=== PATIENT | female | born 1995 | race Caucasian/White ===

== ENCOUNTER 2017-09-15 12:39 | Emergency (ER) | payer OTHER ==
--- NOTE | 2017-09-15 12:42 | EDM.PDOC ---
ED HPI GENERAL MEDICAL PROBLEM - General Chief Complaint: Allergic Reaction Stated Complaint: ALLERGIC REACTION Time Seen by Provider: 09/15/17 12:42 Source of Information: Reports: Patient - History of Present Illness INITIAL COMMENTS - FREE TEXT/NARRATIVE: HISTORY AND PHYSICAL: History of present illness: [ Patient took a first dosing of niacin today and felt hot and red flushed skin similar to common niacin reaction, symptoms have alleviated she states she felt as if her throat and swollen although she speaks clearly. Sentences no distress breathing nonlabored No fever nausea vomiting chills sweats no chest pain shortness breath headache dizziness or palpitation no bowel or urine symptoms] Review of systems: As per history of present illness and below otherwise all systems reviewed and negative. Past medical history: As per history of present illness and as reviewed below otherwise noncontributory. Surgical history: As per history of present illness and as reviewed below otherwise noncontributory. Social history: No reported history of drug or alcohol abuse. Family history: As per history of present illness and as reviewed below otherwise noncontributory. Physical exam: HEENT: Atraumatic, normocephalic, pupils reactive, negative for conjunctival pallor or scleral icterus, mucous membranes moist, throat clear, neck supple, nontender, trachea midline. No lip swelling tongue swelling or oral pharyngeal edema Lungs: Clear to auscultation, breath sounds equal bilaterally, chest nontender. Heart: S1S2, regular, negative for clicks, rubs, or JVD. Abdomen: Soft, nondistended, nontender. Negative for masses or hepatosplenomegaly. Negative for costovertebral tenderness. Pelvis: Stable nontender. Genitourinary: Deferred. Rectal: Deferred. Extremities: Atraumatic, negative for cords or calf pain. Neurovascular unremarkable. Neuro: Awake, alert, oriented. Cranial nerves II through XII unremarkable. Cerebellum unremarkable. Motor and sensory unremarkable throughout. Exam nonfocal. Skin unremarkable Diagnostics: [] Therapeutics: [Benadryl 50 mg by mouth now may use as needed every 4-6 hours Consider alternative medications with primary care Stop niacin for now ] Impression: [Reaction to medication] Definitive disposition and diagnosis as appropriate pending reevaluation and review of above. face/arms Pain Score (Numeric/FACES): 4 - Related Data Allergies Allergy/AdvReac Type Severity Reaction Status Date / Time lobster Allergy Anaphylactic Uncoded 09/15/17 12:43 Shock Home Meds: Home Meds Levothyroxine [Synthroid] 100 mcg PO DAILY 09/15/17 [History] Past Medical History - Past Health History Medical/Surgical History: Denies Medical/Surgical History Social & Family History - Family History Family Medical History: Noncontributory - Tobacco Use Smoking Status *Q: Never Smoker Years of Tobacco use: 4 Second Hand Smoke Exposure: No - Alcohol Use Days Per Week of Alcohol Use: 4 Number of Drinks Per Day: 2 Total Drinks Per Week: 8 - Recreational Drug Use Recreational Drug Use: No ED ROS ALLERGIC REACTION - Review of Systems Review Of Systems: ROS reveals no pertinent complaints other than HPI. ED EXAM GENERAL NO PERIP PULSE - Physical Exam Exam: See Below Course - Vital Signs Last Recorded V/S: Last Vital Signs Temp 97.5 F 09/15/17 12:40 Pulse 73 09/15/17 12:40 Resp 20 09/15/17 12:40 BP 106/62 09/15/17 12:40 Pulse Ox 98 09/15/17 12:40 - Orders/Labs/Meds Meds: Medications Discontinued Medications Generic Name Dose Route Start Last Admin Trade Name Freq PRN Reason Stop Dose Admin Diphenhydramine HCl 50 mg 09/15/17 12:46 Benadryl PO 09/15/17 12:47 ONETIME ONE Departure - Departure Time of Disposition: 12:49 Disposition: Home, Self-Care 01 Condition: Good Clinical Impression: Medication reaction - Discharge Information Additional Instructions: Stop niacin for now Follow-up with your primary care and consider alternative medications Renagel 50 mg every 4-6 hours as needed may be used As discussed this is a likely a well-known side effect of the medication and does not necessarily represent allergic reaction The following information is given to patients seen in the emergency department who are being discharged to home. This information is to outline your options for follow-up care. We provide all patients seen in our emergency department with a follow-up referral. The need for follow-up, as well as the timing and circumstances, are variable depending upon the specifics of your emergency department visit. If you don't have a primary care physician on staff, we will provide you with a referral. We always advise you to contact your personal physician following an emergency department visit to inform them of the circumstance of the visit and for follow-up with them and/or the need for any referrals to a consulting specialist. The emergency department will also refer you to a specialist when appropriate. This referral assures that you have the opportunity for follow-up care with a specialist. All of these measure are taken in an effort to provide you with optimal care, which includes your follow-up. Under all circumstances we always encourage you to contact your private physician who remains a resource for coordinating your care. When calling for follow-up care, please make the office aware that this follow-up is from your recent emergency room visit. If for any reason you are refused follow-up, please contact the [facility] emergency department at and asked to speak to the emergency department charge nurse.
[2017-09-15] MEDS ORDERED: diphenhydrAMINE 50 MG Cap PO ONE (12:46)
[2017-09-15 13:29] VITALS: BP 121/68
== END 2017-09-15 13:26 | disposition home or self-care (01) ==
LOC: MW.ED 12:39
DX: R22.1 Localized swelling, mass and lump, neck (principal); T46.7X5A Adverse effect of peripheral vasodilators, initial encounter; Z91.013 Allergy to seafood; Z79.899 Other long term (current) drug therapy
CPT/HCPCS: 99283; A9270

== ENCOUNTER 2018-12-24 21:36 | Emergency (ER) | payer BC ==
[2018-12-24] MEDS ORDERED: Sodium Chloride 0.9% 1,000 ML IV ONE (21:40)
[2018-12-24] MEDS ORDERED: methylPREDNISolone Sodium Succinate 125 MG/2 ML SDV IVPUSH ONE (21:40)
[2018-12-24] MEDS ORDERED: Ketorolac 30 MG/ML SDV IVPUSH ONE (21:40)
--- NOTE | 2018-12-24 21:45 | EDM.PDOC ---
<Marielle Baltazar - Last Filed: 12/24/18 23:38> ED HPI GENERAL MEDICAL PROBLEM - General Stated Complaint: CHEST PAIN Time Seen by Provider: 12/24/18 21:41 - History of Present Illness INITIAL COMMENTS - FREE TEXT/NARRATIVE: This is Dr. Baltazar dictating an addendum note as I assumed care of this case at 10 PM. After IV fluids the patient's vital signs have normalized. She is still totally nursing that she has diffuse chest pain and a headache as well as a sore throat. She has been given Toradol or ready and I will discuss with her further pain management here. Currently awaiting her chest x-ray results but the remainder of her labs are all within normal limits. My personal interview of the patient she does have a history of asthma which is usually just induced with exercise and she uses a preventative but she cannot recall the name. On my physical exam the patient does have some posterior oropharyngeal erythema but there is no gross swelling or cervical adenopathy. The patient has diminished breath sounds on exam but no wheezing or stridor and in my interview of her the patient started having a rhonchitic harsh cough. I discussed with her asthma and that this may be an asthma: With a bronchitic component. Once I obtain her chest x-ray results we will discuss care plan for home but in the interim I will give her a DuoNeb. I've also given her spacer and spacer teaching for her inhaler at home. I have discussed with her that the chest pain that she is experiencing is likely due to the tightness of her airways and that once the steroids kick in and with regular inhaler use the discomfort will dissipate. Chest x-ray was being read as interstitial prominence consistent with reactive airway disease or bronchiolitis is consistent with the patient's presenting symptoms but there is also some haziness in the left base that may be the start of an early pneumonia. I will give her a dose of Rocephin here and Cefdnir for home along with some cough medicine and the prednisone. Please add to impression above: Asthmatic bronchitis with exacerbation, early left lower lobe pneumonia,pharyngitis - Related Data Allergies Allergy/AdvReac Type Severity Reaction Status Date / Time lobster Allergy Anaphylactic Uncoded 12/24/18 21:57 Shock Home Meds: Home Meds Levothyroxine [Synthroid] 100 mcg PO DAILY 09/15/17 [History] FLUoxetine [PROzac] 0 mg PO DAILY 12/24/18 [History] buPROPion [Wellbutrin] 0 mg PO DAILY 12/24/18 [History] ED ROS GENERAL - Review of Systems Review Of Systems: ROS reveals no pertinent complaints other than HPI. Course - Vital Signs Last Recorded V/S: Last Vital Signs Temp 97.9 F 12/24/18 23:11 Pulse 87 12/25/18 00:33 Resp 16 12/25/18 00:33 BP 124/76 12/25/18 00:33 Pulse Ox 96 12/25/18 00:33 - Orders/Labs/Meds Labs: Laboratory Tests 12/24/18 12/24/18 12/24/18 Range/Units 21:53 21:53 22:05 WBC 9.93 (4.0-11.0) K/uL RBC 4.53 (4.30-5.90) M/uL Hgb 13.4 (12.0-16.0) g/dL Hct 40.6 (36.0-46.0) % MCV 89.6 (80.0-98.0) fL MCH 29.6 (27.0-32.0) pg MCHC 33.0 (31.0-37.0) g/dL RDW Std Deviation 42.2 (28.0-62.0) fl RDW Coeff of Nicole 13 (11.0-15.0) % Plt Count 301 (150-400) K/uL MPV 9.80 (7.40-12.00) fL Neut % (Auto) 56.8 (48.0-80.0) % Lymph % (Auto) 33.2 (16.0-40.0) % [place] % (Auto) 8.8 (0.0-15.0) % Eos % (Auto) 1.0 (0.0-7.0) % Baso % (Auto) 0.2 (0.0-1.5) % Neut # (Auto) 5.6 (1.4-5.7) K/uL Lymph # (Auto) 3.3 H (0.6-2.4) K/uL [place] # (Auto) 0.9 H (0.0-0.8) K/uL Eos # (Auto) 0.1 (0.0-0.7) K/uL Baso # (Auto) 0.0 (0.0-0.1) K/uL Nucleated RBC % 0.0 /100WBC Nucleated RBCs # 0 K/uL Sodium (136-145) mmol/L Potassium (3.5-5.1) mmol/L Chloride (98-107) mmol/L Carbon Dioxide (21.0-32.0) mmol/L BUN (7.0-18.0) mg/dL Creatinine (0.6-1.0) mg/dL Est Cr Clr Drug Dosing mL/min Estimated GFR (MDRD) ml/min Glucose (74-106) mg/dL Calcium (8.5-10.1) mg/dL Total Bilirubin (0.2-1.0) mg/dL AST (15-37) IU/L ALT (14-63) IU/L Alkaline Phosphatase (46-116) U/L Total Protein (6.4-8.2) g/dL Albumin (3.4-5.0) g/dL Globulin (2.6-4.0) g/dL Albumin/Globulin Ratio (0.9-1.6) Urine Color YELLOW Urine Appearance SLT CLOUDY Urine pH 5.5 (5.0-8.0) Ur Specific [place] >= 1.030 (1.001-1.035) Urine Protein NEGATIVE (NEGATIVE) mg/dL Urine Glucose (UA) NEGATIVE (NEGATIVE) mg/dL Urine Ketones TRACE H (NEGATIVE) mg/dL Urine Occult Blood NEGATIVE (NEGATIVE) Urine Nitrite NEGATIVE (NEGATIVE) Urine Bilirubin NEGATIVE (NEGATIVE) Urine Urobilinogen 0.2 (<2.0) EU/dL Ur Leukocyte Esterase NEGATIVE (NEGATIVE) Urine HCG, Qual NEGATIVE (NEGATIVE) 12/24/18 Range/Units 22:05 WBC (4.0-11.0) K/uL RBC (4.30-5.90) M/uL Hgb (12.0-16.0) g/dL Hct (36.0-46.0) % MCV (80.0-98.0) fL MCH (27.0-32.0) pg MCHC (31.0-37.0) g/dL RDW Std Deviation (28.0-62.0) fl RDW Coeff of Nicole (11.0-15.0) % Plt Count (150-400) K/uL MPV (7.40-12.00) fL Neut % (Auto) (48.0-80.0) % Lymph % (Auto) (16.0-40.0) % [place] % (Auto) (0.0-15.0) % Eos % (Auto) (0.0-7.0) % Baso % (Auto) (0.0-1.5) % Neut # (Auto) (1.4-5.7) K/uL Lymph # (Auto) (0.6-2.4) K/uL [place] # (Auto) (0.0-0.8) K/uL Eos # (Auto) (0.0-0.7) K/uL Baso # (Auto) (0.0-0.1) K/uL Nucleated RBC % /100WBC Nucleated RBCs # K/uL Sodium 141 (136-145) mmol/L Potassium 3.5 (3.5-5.1) mmol/L Chloride 106 (98-107) mmol/L Carbon Dioxide 24.4 (21.0-32.0) mmol/L BUN 18 (7.0-18.0) mg/dL Creatinine 0.9 (0.6-1.0) mg/dL Est Cr Clr Drug Dosing 68.64 mL/min Estimated GFR (MDRD) > 60.0 ml/min Glucose 117 H (74-106) mg/dL Calcium 8.8 (8.5-10.1) mg/dL Total Bilirubin 0.2 (0.2-1.0) mg/dL AST 13 L (15-37) IU/L ALT 20 (14-63) IU/L Alkaline Phosphatase 56 (46-116) U/L Total Protein 7.2 (6.4-8.2) g/dL Albumin 3.5 (3.4-5.0) g/dL Globulin 3.7 (2.6-4.0) g/dL Albumin/Globulin Ratio 0.9 (0.9-1.6) Urine Color Urine Appearance Urine pH (5.0-8.0) Ur Specific [place] (1.001-1.035) Urine Protein (NEGATIVE) mg/dL Urine Glucose (UA) (NEGATIVE) mg/dL Urine Ketones (NEGATIVE) mg/dL Urine Occult Blood (NEGATIVE) Urine Nitrite (NEGATIVE) Urine Bilirubin (NEGATIVE) Urine Urobilinogen (<2.0) EU/dL Ur Leukocyte Esterase (NEGATIVE) Urine HCG, Qual (NEGATIVE) Meds: Medications Discontinued Medications Generic Name Dose Route Start Last Admin Trade Name Freq PRN Reason Stop Dose Admin Albuterol/Ipratropium 3 ml 12/24/18 23:27 12/24/18 23:34 Duoneb 3.0-0.5 Mg/3 Ml NEB 12/24/18 23:28 3 ml ONETIME ONE Administration Sodium Chloride 1,000 mls @ 999 mls/hr 12/24/18 21:40 12/24/18 22:06 Normal Saline IV 12/24/18 22:40 999 mls/hr STAT ONE Administration Ceftriaxone Sodium/Dextrose 1 50 mls @ 100 mls/hr 12/24/18 23:42 12/24/18 23: 47 gm/ Premix IV 12/25/18 00:11 100 mls/hr ONETIME ONE Administration Ketorolac Tromethamine 30 mg 12/24/18 21:40 12/24/18 22:08 Toradol IVPUSH 12/24/18 21:41 30 mg ONETIME ONE Administration Methylprednisolone Sodium Succinate 125 mg 12/24/18 21:40 12/24/18 22:10 Solu-Medrol IVPUSH 12/24/18 21:41 125 mg ONETIME ONE Administration Promethazine HCl/Codeine 15 ml 12/25/18 23:45 Phenergan With Codeine PO 12/25/18 23:46 ONETIME ONE Promethazine HCl/Codeine Confirm 12/24/18 23:59 12/25/18 00:08 Phenergan With Codeine Administered 12/25/18 00:00 Not Given Dose 15 ml .ROUTE .STK-MED ONE Promethazine HCl/Codeine 15 ml 12/25/18 00:04 12/25/18 00:07 Phenergan With Codeine PO 12/25/18 00:05 15 ml ONETIME ONE Administration Departure - Departure Time of Disposition: 23:39 Disposition: Home, Self-Care 01 Condition: Good Clinical Impression: Asthmatic bronchitis Qualifiers: Asthma severity: unspecified severity Asthma persistence: unspecified Asthma complication type: with acute exacerbation Qualified Code(s): J45.901 - Unspecified asthma with (acute) exacerbation Pneumonia Qualifiers: Pneumonia type: due to unspecified organism Laterality: left Lung location: lower lobe of lung Qualified Code(s): J18.1 - Lobar pneumonia, unspecified organism Instructions: Asthma, Adult, [id number], Community-Acquired Pneumonia, Adult , [id number] Referrals: PCP,None [Primary Care Provider] - Forms: ED Department Discharge Additional Instructions: The following information is given to patients seen in the emergency department who are being discharged to home. This information is to outline your options for follow-up care. We provide all patients seen in our emergency department with a follow-up referral. The need for follow-up, as well as the timing and circumstances, are variable depending upon the specifics of your emergency department visit. If you don't have a primary care physician on staff, we will provide you with a referral. We always advise you to contact your personal physician following an emergency department visit to inform them of the circumstance of the visit and for follow-up with them and/or the need for any referrals to a consulting specialist. The emergency department will also refer you to a specialist when appropriate. This referral assures that you have the opportunity for followup care with a specialist. All of these measure are taken in an effort to provide you with optimal care, which includes your followup. Under all circumstances we always encourage you to contact your private physician who remains a resource for coordinating your care. When calling for followup care, please make the office aware that this follow-up is from your recent emergency room visit. If for any reason you are refused follow-up, please contact the [facility] emergency department at and ask to speak to the emergency department charge nurse. [facility] Primary care- [place] [address] I've advised to push hydration and to use her pro-air/albuterol inhaler with spacer she was given 1-2 puffs every 6 hours [id number] for the next 2 days and then every 6 hours as needed. You have been given a dose of steroids here that will last until tomorrow but you need to fill the prescription as you' re given for the prednisone and started tomorrow midday. You have also been given a prescription for Cefdnir that you can also start tomorrow. Please call and schedule a follow-up appointment in the clinic with your provider or one of hours and return to ER as needed and as discussed <Abby Gray E - Last Filed: 12/28/18 10:32> ED HPI GENERAL MEDICAL PROBLEM - General Source of Information: Reports: Patient History Limitations: Reports: No Limitations - History of Present Illness INITIAL COMMENTS - FREE TEXT/NARRATIVE: HISTORY AND PHYSICAL: History of present illness: Patient is a 23-year-old female who presents to the emergency room with complaints of sore throat, chest pain, cough and mid back pain. She states for approximately one week she has had a sore throat and cough and generally felt fatigued. Today she states her symptoms were worsened and she developed some mid back pain and chest pain associated with her cough. States she does have a frontal headache with some noise sensitivity. Denies any head injury, trauma or falls. Patient denies any fever, chills, change in vision, syncope or near syncope. Denies any shortness of breath. Denies any abdominal pain, nausea, vomiting, diarrhea, constipation or dysuria. Denies any chance of . Has not noted any blood in urine or stool. Patient has been eating and drinking appropriately. Review of systems: As per history of present illness and below otherwise all systems reviewed and negative. Past medical history: As per history of present illness and as reviewed below otherwise noncontributory. Surgical history: As per history of present illness and as reviewed below otherwise noncontributory. Social history: See social history for further information Family history: As per history of present illness and as reviewed below otherwise noncontributory. Physical exam: General: Well-developed and well-nourished 23-year-old female. Alert and oriented. Nontoxic appearing and in no acute distress. HEENT: Atraumatic, normocephalic, pupils equal and reactive bilaterally, negative for conjunctival pallor or scleral icterus, mucous membranes moist, PE tubes bilaterally (placed Sep 2018), throat clear, neck supple, nontender, trachea midline. No drooling or trismus noted. No meningeal signs. No hot potato voice noted. Lungs: Clear but slightly diminished to auscultation, breath sounds equal bilaterally, chest nontender. Heart: S1S2, regular rate and rhythm without overt murmur Abdomen: Soft, nondistended, nontender. Negative for masses or hepatosplenomegaly. Negative for costovertebral tenderness. Pelvis: Stable nontender. Genitourinary: Deferred. Rectal: Deferred. Skin: Intact, warm, dry. No lesions or rashes noted. Extremities: Atraumatic, moves all extremities per self without difficulty or deficits, negative for cords or calf pain. Neurovascular unremarkable. Neuro: Awake, alert, oriented. Cranial nerves II through XII unremarkable. Cerebellum unremarkable. Motor and sensory unremarkable throughout. Exam nonfocal. Notes: Labs and imagining results are pending. Dr Baltazar was informed of this patient and will follow up on these and disposition patient appropriately. Diagnostics: CBC, CMP, UA, urine , strep screening, chest x-ray, EKG Therapeutics: IV fluid, Toradol, Solu-Medrol Impression: Upper Respiratory Illness Definitive disposition and diagnosis as appropriate pending reevaluation and review of above. chest Pain Score (Numeric/FACES): 8 Past Medical History - Past Health History Medical/Surgical History: Denies Medical/Surgical History - Past Surgical History HEENT Surgical History: Reports: Naso-Sinus Surgery GI Surgical History: Reports: Appendectomy Social & Family History - Family History Family Medical History: Noncontributory - Caffeine Use Caffeine Use: Reports: Coffee, Tea ED ROS GENERAL - Review of Systems Review Of Systems: ROS reveals no pertinent complaints other than HPI. ED EXAM, GENERAL - Physical Exam Exam: See Below (See dictation) Course - Vital Signs Last Recorded V/S: Last Vital Signs Temp 97.9 F 12/24/18 23:11 Pulse 87 12/25/18 00:33 Resp 16 12/25/18 00:33 BP 124/76 12/25/18 00:33 Pulse Ox 96 12/25/18 00:33 - Orders/Labs/Meds Labs: Laboratory Tests 12/24/18 12/24/18 12/24/18 Range/Units 21:53 21:53 22:05 WBC 9.93 (4.0-11.0) K/uL RBC 4.53 (4.30-5.90) M/uL Hgb 13.4 (12.0-16.0) g/dL Hct 40.6 (36.0-46.0) % MCV 89.6 (80.0-98.0) fL MCH 29.6 (27.0-32.0) pg MCHC 33.0 (31.0-37.0) g/dL RDW Std Deviation 42.2 (28.0-62.0) fl RDW Coeff of Nicole 13 (11.0-15.0) % Plt Count 301 (150-400) K/uL MPV 9.80 (7.40-12.00) fL Neut % (Auto) 56.8 (48.0-80.0) % Lymph % (Auto) 33.2 (16.0-40.0) % [place] % (Auto) 8.8 (0.0-15.0) % Eos % (Auto) 1.0 (0.0-7.0) % Baso % (Auto) 0.2 (0.0-1.5) % Neut # (Auto) 5.6 (1.4-5.7) K/uL Lymph # (Auto) 3.3 H (0.6-2.4) K/uL [place] # (Auto) 0.9 H (0.0-0.8) K/uL Eos # (Auto) 0.1 (0.0-0.7) K/uL Baso # (Auto) 0.0 (0.0-0.1) K/uL Nucleated RBC % 0.0 /100WBC Nucleated RBCs # 0 K/uL Sodium (136-145) mmol/L Potassium (3.5-5.1) mmol/L Chloride (98-107) mmol/L Carbon Dioxide (21.0-32.0) mmol/L BUN (7.0-18.0) mg/dL Creatinine (0.6-1.0) mg/dL Est Cr Clr Drug Dosing mL/min Estimated GFR (MDRD) ml/min Glucose (74-106) mg/dL Calcium (8.5-10.1) mg/dL Total Bilirubin (0.2-1.0) mg/dL AST (15-37) IU/L ALT (14-63) IU/L Alkaline Phosphatase (46-116) U/L Total Protein (6.4-8.2) g/dL Albumin (3.4-5.0) g/dL Globulin (2.6-4.0) g/dL Albumin/Globulin Ratio (0.9-1.6) Urine Color YELLOW Urine Appearance SLT CLOUDY Urine pH 5.5 (5.0-8.0) Ur Specific [place] >= 1.030 (1.001-1.035) Urine Protein NEGATIVE (NEGATIVE) mg/dL Urine Glucose (UA) NEGATIVE (NEGATIVE) mg/dL Urine Ketones TRACE H (NEGATIVE) mg/dL Urine Occult Blood NEGATIVE (NEGATIVE) Urine Nitrite NEGATIVE (NEGATIVE) Urine Bilirubin NEGATIVE (NEGATIVE) Urine Urobilinogen 0.2 (<2.0) EU/dL Ur Leukocyte Esterase NEGATIVE (NEGATIVE) Urine HCG, Qual NEGATIVE (NEGATIVE) 12/24/18 Range/Units 22:05 WBC (4.0-11.0) K/uL RBC (4.30-5.90) M/uL Hgb (12.0-16.0) g/dL Hct (36.0-46.0) % MCV (80.0-98.0) fL MCH (27.0-32.0) pg MCHC (31.0-37.0) g/dL RDW Std Deviation (28.0-62.0) fl RDW Coeff of Nicole (11.0-15.0) % Plt Count (150-400) K/uL MPV (7.40-12.00) fL Neut % (Auto) (48.0-80.0) % Lymph % (Auto) (16.0-40.0) % [place] % (Auto) (0.0-15.0) % Eos % (Auto) (0.0-7.0) % Baso % (Auto) (0.0-1.5) % Neut # (Auto) (1.4-5.7) K/uL Lymph # (Auto) (0.6-2.4) K/uL [place] # (Auto) (0.0-0.8) K/uL Eos # (Auto) (0.0-0.7) K/uL Baso # (Auto) (0.0-0.1) K/uL Nucleated RBC % /100WBC Nucleated RBCs # K/uL Sodium 141 (136-145) mmol/L Potassium 3.5 (3.5-5.1) mmol/L Chloride 106 (98-107) mmol/L Carbon Dioxide 24.4 (21.0-32.0) mmol/L BUN 18 (7.0-18.0) mg/dL Creatinine 0.9 (0.6-1.0) mg/dL Est Cr Clr Drug Dosing 68.64 mL/min Estimated GFR (MDRD) > 60.0 ml/min Glucose 117 H (74-106) mg/dL Calcium 8.8 (8.5-10.1) mg/dL Total Bilirubin 0.2 (0.2-1.0) mg/dL AST 13 L (15-37) IU/L ALT 20 (14-63) IU/L Alkaline Phosphatase 56 (46-116) U/L Total Protein 7.2 (6.4-8.2) g/dL Albumin 3.5 (3.4-5.0) g/dL Globulin 3.7 (2.6-4.0) g/dL Albumin/Globulin Ratio 0.9 (0.9-1.6) Urine Color Urine Appearance Urine pH (5.0-8.0) Ur Specific [place] (1.001-1.035) Urine Protein (NEGATIVE) mg/dL Urine Glucose (UA) (NEGATIVE) mg/dL Urine Ketones (NEGATIVE) mg/dL Urine Occult Blood (NEGATIVE) Urine Nitrite (NEGATIVE) Urine Bilirubin (NEGATIVE) Urine Urobilinogen (<2.0) EU/dL Ur Leukocyte Esterase (NEGATIVE) Urine HCG, Qual (NEGATIVE) Meds: Medications Discontinued Medications Generic Name Dose Route Start Last Admin Trade Name Freq PRN Reason Stop Dose Admin Albuterol/Ipratropium 3 ml 12/24/18 23:27 12/24/18 23:34 Duoneb 3.0-0.5 Mg/3 Ml NEB 12/24/18 23:28 3 ml ONETIME ONE Administration Sodium Chloride 1,000 mls @ 999 mls/hr 12/24/18 21:40 12/24/18 22:06 Normal Saline IV 12/24/18 22:40 999 mls/hr STAT ONE Administration Ceftriaxone Sodium/Dextrose 1 50 mls @ 100 mls/hr 12/24/18 23:42 12/24/18 23: 47 gm/ Premix IV 12/25/18 00:11 100 mls/hr ONETIME ONE Administration Ketorolac Tromethamine 30 mg 12/24/18 21:40 12/24/18 22:08 Toradol IVPUSH 12/24/18 21:41 30 mg ONETIME ONE Administration Methylprednisolone Sodium Succinate 125 mg 12/24/18 21:40 12/24/18 22:10 Solu-Medrol IVPUSH 12/24/18 21:41 125 mg ONETIME ONE Administration Promethazine HCl/Codeine 15 ml 12/25/18 23:45 Phenergan With Codeine PO 12/25/18 23:46 ONETIME ONE Promethazine HCl/Codeine Confirm 12/24/18 23:59 12/25/18 00:08 Phenergan With Codeine Administered 12/25/18 00:00 Not Given Dose 15 ml .ROUTE .STK-MED ONE Promethazine HCl/Codeine 15 ml 12/25/18 00:04 12/25/18 00:07 Phenergan With Codeine PO 12/25/18 00:05 15 ml ONETIME ONE Administration
[2018-12-24 22:42] LABS: CHLORIDE,CL 106 mmol/L (98-107); SODIUM,NA 141 mmol/L (136-145)
[2018-12-24] MEDS ORDERED: Albuterol/Ipratropium 3.0-0.5 MG/3 ML Neb Soln NEB ONE (23:27)
--- NOTE | 2018-12-24 23:37 | CR ---
INDICATION: Cough COMPARISON: None available FINDINGS: PA and lateral views of the chest were obtained. There is mild prominence of the bronchial rodriguez suggesting bronchitis or reactive airway disease. There is mild patchy infiltrate in the retrocardiac left lower lobe which could be an early pneumonia. The heart remains normal in size. The mediastinum is normal in appearance. The osseous structures are normal in appearance for the patient`s age. IMPRESSION: Mild prominence of bronchial markings consistent with bronchitis or reactive airway disease. Mild patchy left lower lobe infiltrate, possible pneumonia. Dictated by Kam Barkley MD @ Dec 24 2018 11:33PM Signed by Dr. Kam Barkley @ Dec 24 2018 11:35PM
[2018-12-24] MEDS ORDERED: cefTRIAXone 1 GM in Premix Bag 1 BAG IV ONE (23:42)
[2018-12-24] MEDS ORDERED: Codeine/Promethazine 10-6.25 MG/5 ML Syrup 5 ML UD Cup ONE (23:59)
[2018-12-25] MEDS ORDERED: Codeine/Promethazine 10-6.25 MG/5 ML Syrup 5 ML UD Cup PO ONE ×2 (00:04→23:45)
[2018-12-25 00:34] VITALS: BP 124/76
== END 2018-12-25 00:34 | disposition home or self-care (01) ==
LOC: MW.ED 21:36
DX: J45.901 Unspecified asthma with (acute) exacerbation (principal); J18.1 Lobar pneumonia, unspecified organism; J06.9 Acute upper respiratory infection, unspecified; Z91.018 Allergy to other foods; Z79.899 Other long term (current) drug therapy
CPT/HCPCS: 71046; 80053; 81003; 81025; 85025; 87081; 87880; 93005; 96361; 96365; 96375; 99285; A4217; A9270; J0696; J1885; J2930; J7040; J7620-GY

== ENCOUNTER 2019-01-12 10:53 | Emergency (ER) | payer BC, OTHER ==
[2019-01-12] MEDS ORDERED: methylPREDNISolone Sodium Succinate 125 MG/2 ML SDV IM ONE (12:07)
[2019-01-12] MEDS ORDERED: Albuterol/Ipratropium 3.0-0.5 MG/3 ML Neb Soln NEB ONE (12:07)
--- NOTE | 2019-01-12 12:09 | EDM.PDOC ---
ED HPI GENERAL MEDICAL PROBLEM - General Chief Complaint: General Stated Complaint: DIFF BREATHING Time Seen by Provider: 01/12/19 10:54 Source of Information: Reports: Patient History Limitations: Reports: No Limitations - History of Present Illness INITIAL COMMENTS - FREE TEXT/NARRATIVE: HISTORY AND PHYSICAL: History of present illness: Patient is a 24-year-old female who presents to the ED today with concern of cough, nasal congestion 1 day. Patient was seen on 12/24/18 for similar symptoms and at that time had been treated for an asthma bronchitis with exacerbation and a potential early left lower lobe pneumonia with Rocephin, cefdinir, and prednisone. Patient states her symptoms quickly resolved after treatment for this. Patient states starting yesterday, she started to feel similar symptoms come up again so she decided to come in and make sure she was okay. Patient does see [facility] for asthma in which she does a daily Symbicort inhaler and uses a pleural air for rescue. Patient states she's been taking these accordingly and is only use the rescue once yesterday. Patient denies any other symptoms at this time. Patient denies fever, chills, chest pain, shortness of breath. Denies headache, neck stiff ness, change in vision, syncope, or near syncope. Denies nausea, vomiting, abdominal pain, diarrhea, constipation, or dysuria. Has not noted any blood in urine or stool. Patient has been eating and drinking appropriately. Review of systems: As per history of present illness and below otherwise all systems reviewed and negative. Past medical history: As per history of present illness and as reviewed below otherwise noncontributory. Surgical history: As per history of present illness and as reviewed below otherwise noncontributory. Social history: See social history for further information Family history: As per history of present illness and as reviewed below otherwise noncontributory. Physical exam: General: Patient is alert, oriented, and in no acute distress. Patient sitting comfortably on exam table. HEENT: Atraumatic, normocephalic, pupils equal and reactive bilaterally, negative for conjunctival pallor or scleral icterus, mucous membranes moist, TMs normal bilaterally with intact bilateral TM tubes, throat clear, neck supple , nontender, trachea midline. No drooling or trismus noted. No meningeal signs. No hot potato voice noted. Lungs: Mild wheezing to auscultation if bilateral lung bases, breath sounds equal bilaterally, chest nontender. Heart: S1S2, regular rate and rhythm without overt murmur Abdomen: Soft, nondistended, nontender. Negative for masses or hepatosplenomegaly. Negative for costovertebral tenderness. Pelvis: Stable nontender. Genitourinary: Deferred. Rectal: Deferred. Skin: Intact, warm, dry. No lesions or rashes noted. Extremities: Atraumatic, negative for cords or calf pain. Neurovascular unremarkable. Neuro: Awake, alert, oriented. Cranial nerves II through XII unremarkable. Cerebellum unremarkable. Motor and sensory unremarkable throughout. Exam nonfocal. Notes: Vitals today have been reassuring. Oxygenation well maintained above 94% throughout ED stay. Emphasized the importance to continue her inhalers as prescribed already and for follow with the primary care provider in regards to her asthma and frequent exacerbations. Voices understanding and is agreeable to plan of care. Denies any further questions or concerns at this time. Diagnostics: Chest x-ray, Therapeutics: Caty Duff-Medjaswinder Prescription: Medrol dose packFortino Impression: Asthma bronchitis with exacerbation Upper respiratory infection Plan: 1. Take medication as prescribed. You can alternate ibuprofen and Tylenol as directed for pain and discomfort. 2. Follow-up with her primary care provider as discussed. Return to the ED as needed and as discussed. Definitive disposition and diagnosis as appropriate pending reevaluation and review of above. Chest Pain Score (Numeric/FACES): 8 - Related Data Allergies Allergy/AdvReac Type Severity Reaction Status Date / Time No Known Allergies Allergy Verified 01/12/19 10:56 Home Meds: Home Meds Levothyroxine [Synthroid] 100 mcg PO DAILY 09/15/17 [History] FLUoxetine [PROzac] 0 mg PO DAILY 12/24/18 [History] buPROPion [Wellbutrin] 0 mg PO DAILY 12/24/18 [History] Past Medical History - Past Health History Medical/Surgical History: Denies Medical/Surgical History Psychiatric History: Reports: Anxiety, Depression - Past Surgical History HEENT Surgical History: Reports: Naso-Sinus Surgery GI Surgical History: Reports: Appendectomy Social & Family History - Family History Family Medical History: Noncontributory - Tobacco Use Smoking Status *Q: Never Smoker - Caffeine Use Caffeine Use: Reports: Coffee - Recreational Drug Use Recreational Drug Use: No ED ROS GENERAL - Review of Systems Review Of Systems: ROS reveals no pertinent complaints other than HPI. ED EXAM, GENERAL - Physical Exam Exam: See Below (See dictation) Course - Vital Signs Last Recorded V/S: Last Vital Signs Temp 35.8 C 01/12/19 10:57 Pulse 96 01/12/19 10:57 Resp 17 01/12/19 10:57 BP 115/71 01/12/19 10:57 Pulse Ox 95 01/12/19 10:57 - Orders/Labs/Meds Orders: Active Orders 24 hr Category Date Time Status RT Aerosol Therapy [RC] ASDIRECTED Care 01/12/19 12:07 Active Meds: Medications Discontinued Medications Generic Name Dose Route Start Last Admin Trade Name Freq PRN Reason Stop Dose Admin Albuterol/Ipratropium 3 ml 01/12/19 12:07 Duoneb 3.0-0.5 Mg/3 Ml NEB 01/12/19 12:08 ONETIME ONE Methylprednisolone Sodium Succinate 125 mg 01/12/19 12:07 Solu-Medrol IM 01/12/19 12:08 ONETIME ONE Departure - Departure Time of Disposition: 12:14 Disposition: Home, Self-Care 01 Clinical Impression: Asthmatic bronchitis Qualifiers: Asthma severity: unspecified severity Asthma persistence: unspecified Asthma complication type: with acute exacerbation Qualified Code(s): J45.901 - Unspecified asthma with (acute) exacerbation Upper respiratory infection Qualifiers: URI type: unspecified URI Qualified Code(s): J06.9 - Acute upper respiratory infection, unspecified - Discharge Information Referrals: PCP,None [Primary Care Provider] - Forms: ED Department Discharge Additional Instructions: The following information is given to patients seen in the emergency department who are being discharged to home. This information is to outline your options for follow-up care. We provide all patients seen in our emergency department with a follow-up referral. The need for follow-up, as well as the timing and circumstances, are variable depending upon the specifics of your emergency department visit. If you don't have a primary care physician on staff, we will provide you with a referral. We always advise you to contact your personal physician following an emergency department visit to inform them of the circumstance of the visit and for follow-up with them and/or the need for any referrals to a consulting specialist. The emergency department will also refer you to a specialist when appropriate. This referral assures that you have the opportunity for follow-up care with a specialist. All of these measure are taken in an effort to provide you with optimal care, which includes your follow-up. Under all circumstances we always encourage you to contact your private physician who remains a resource for coordinating your care. When calling for follow-up care, please make the office aware that this follow-up is from your recent emergency room visit. If for any reason you are refused follow-up, please contact the [facility] Emergency Department at and asked to speak to the emergency department charge nurse. [facility] [address] [place] [id number] [facility] [address] [place] [id number] 1. Take medication as prescribed. You can alternate ibuprofen and Tylenol as directed for pain and discomfort. 2. Follow-up with her primary care provider as discussed. Return to the ED as needed and as discussed. - My Orders Last 24 Hours: My Active Orders 01/12/19 12:07 RT Aerosol Therapy [RC] ASDIRECTED - Assessment/Plan Last 24 Hours: My Active Orders 01/12/19 12:07 RT Aerosol Therapy [RC] ASDIRECTED
--- NOTE | 2019-01-12 12:12 | CR ---
INDICATION: pain, shortness of breath Findings: PA and lateral CXRs show a normal cardiac and mediastinal silhouette. The lungs show no focal pulmonary opacities. Sharp pleural margins. No pneumothorax. Impression: No evidence of acute pulmonary abnormalities. Dictated by: Mina Melara MD @ 01/12/2019 12:11:24 (Electronically Signed)
[2019-01-12 12:30] VITALS: BP 111/58
== END 2019-01-12 12:30 | disposition home or self-care (01) ==
LOC: MW.ED 10:53
DX: J45.901 Unspecified asthma with (acute) exacerbation (principal); J06.9 Acute upper respiratory infection, unspecified; F41.9 Anxiety disorder, unspecified; F32.9 Major depressive disorder, single episode, unspecified; Z79.899 Other long term (current) drug therapy
CPT/HCPCS: 71046; 94640; 96372; 99283; J2930; J7620-GY

== ENCOUNTER 2019-07-08 18:05 | Emergency (ER) | payer BC, OTHER ==
--- NOTE | 2019-07-08 18:24 | EDM.PDOC ---
ED HPI GENERAL MEDICAL PROBLEM - General Chief Complaint: Upper Extremity Injury/Pain Stated Complaint: WORK INJURY Time Seen by Provider: 07/08/19 18:19 Source of Information: Reports: Patient History Limitations: Reports: No Limitations - History of Present Illness INITIAL COMMENTS - FREE TEXT/NARRATIVE: HISTORY AND PHYSICAL: History of present illness: Patient is a 24-year-old female presents to the ED with complaint of left shoulder and back pain. She states 3 days ago at work she was lifting a full keg and shortly after started having pain in her left shoulder/upper back. She states she is occasionally having some shooting pains and numbness down in to her hand. She denies neck pain or injury. Review of systems: As per history of present illness and below otherwise all systems reviewed and negative. Past medical history: As per history of present illness and as reviewed below otherwise noncontributory. Surgical history: As per history of present illness and as reviewed below otherwise noncontributory. Social history: No reported history of drug or alcohol abuse. Family history: As per history of present illness and as reviewed below otherwise noncontributory. Physical exam: General: Patient sitting comfortably in no acute distress and nontoxic appearing HEENT: Atraumatic, normocephalic, pupils reactive, negative for conjunctival pallor or scleral icterus, mucous membranes moist, throat clear, neck supple, nontender, trachea midline. No meningeal signs. Lungs: Clear to auscultation, breath sounds equal bilaterally, chest nontender. Heart: S1S2, regular, negative for clicks, rubs, or overt murmur. Abdomen: Soft, nondistended, nontender. Negative for masses or hepatosplenomegaly. Negative for costovertebral tenderness. No rigidity, rebound , guarding. Pelvis: Stable nontender. Genitourinary: Deferred. Rectal: Deferred. Spine: No vertebral tenderness or step offs to palpation. Extremities: Pain to palpation of the lateral and posterior left deltoid. Atraumatic, negative for cords or calf pain. Neurovascular unremarkable. Neuro: Awake, alert, oriented. Cranial nerves II through XII unremarkable. Cerebellum unremarkable. Motor and sensory unremarkable throughout. Exam nonfocal. Notes: Diagnostics: x-ray left shoulder Therapeutics: [] Prescriptions: Flexeril (#10) Impression: Left shoulder pain Definitive disposition and diagnosis as appropriate pending reevaluation and review of above. left shoulder/back Pain Score (Numeric/FACES): 7 - Related Data Allergies Allergy/AdvReac Type Severity Reaction Status Date / Time No Known Allergies Allergy Verified 07/08/19 18:18 Home Meds: Home Meds Levothyroxine [Synthroid] 100 mcg PO DAILY 09/15/17 [History] FLUoxetine [PROzac] 20 mg PO DAILY 12/24/18 [History] buPROPion [Wellbutrin] 300 mg PO DAILY 12/24/18 [History] Cyclobenzaprine [Flexeril] 10 mg PO BEDTIME #10 tab 07/08/19 [Rx] Omeprazole 20 mg PO ACBREAKFAST 07/08/19 [History] Past Medical History - Past Health History Medical/Surgical History: Denies Medical/Surgical History Psychiatric History: Reports: Anxiety, Depression - Past Surgical History HEENT Surgical History: Reports: Naso-Sinus Surgery GI Surgical History: Reports: Appendectomy Social & Family History - Family History Family Medical History: Noncontributory - Caffeine Use Caffeine Use: Reports: Coffee, Tea Review of Systems - Review of Systems Review Of Systems: Comprehensive ROS is negative, except as noted in HPI. ED EXAM, GENERAL - Physical Exam Exam: See Below (see dictation) Course - Vital Signs Last Recorded V/S: Last Vital Signs Temp 96.5 F 07/08/19 18:16 Pulse 79 07/08/19 18:16 Resp 16 07/08/19 18:16 BP 123/72 07/08/19 18:16 Pulse Ox 97 07/08/19 18:16 - Orders/Labs/Meds Labs: Laboratory Tests 07/08/19 Range/Units 18:30 Urine HCG, Qual NEGATIVE (NEGATIVE) Departure - Departure Time of Disposition: 19:09 Disposition: Home, Self-Care 01 Condition: Good Clinical Impression: Shoulder pain, left - Discharge Information Prescriptions: Cyclobenzaprine [Flexeril] 10 mg PO BEDTIME #10 tab Instructions: Shoulder Pain Referrals: Eddie Metzger MD [Primary Care Provider] - Forms: ED Department Discharge Additional Instructions: The following information is given to patients seen in the emergency department who are being discharged to home. This information is to outline your options for follow-up care. We provide all patients seen in our emergency department with a follow-up referral. The need for follow-up, as well as the timing and circumstances, are variable depending upon the specifics of your emergency department visit. If you don't have a primary care physician on staff, we will provide you with a referral. We always advise you to contact your personal physician following an emergency department visit to inform them of the circumstance of the visit and for follow-up with them and/or the need for any referrals to a consulting specialist. The emergency department will also refer you to a specialist when appropriate. This referral assures that you have the opportunity for follow-up care with a specialist. All of these measure are taken in an effort to provide you with optimal care, which includes your follow-up. Under all circumstances we always encourage you to contact your private physician who remains a resource for coordinating your care. When calling for follow-up care, please make the office aware that this follow-up is from your recent emergency room visit. If for any reason you are refused follow-up, please contact the [facility] Emergency Department at and asked to speak to the emergency department charge nurse. [facility] Specialty [facility] - Orthopedic Clinic Professional Building [address] [place] [address], [address] [place] [address] 1. Ice, elevate, and motrin or tylenol as needed 2. Follow up with orthopedics, please call the number provided to schedule an appointment 3. Return to ED as needed as discussed
--- NOTE | 2019-07-08 19:05 | CR ---
HISTORY: Left shoulder pain. TECHNIQUE: Three views of left shoulder. COMPARISON: No prior. FINDINGS: There is no acute fracture or malalignment. Left glenohumeral and AC joints maintained. No abnormality within the included portions of the left lung. IMPRESSION: No fracture or malalignment. Dictated by Kalyan Long MD @ 07/08/2019 7:03:08 PM Dictated by: Kalyan Long MD @ 07/08/2019 19:03:13 (Electronically Signed)
[2019-07-08 19:18] VITALS: BP 107/68; PULSE 78
== END 2019-07-08 19:15 | disposition home or self-care (01) ==
LOC: MW.ED 18:05
DX: M25.512 Pain in left shoulder (principal); F41.9 Anxiety disorder, unspecified; F32.9 Major depressive disorder, single episode, unspecified; Z79.899 Other long term (current) drug therapy
CPT/HCPCS: 73030-26-LT; 73030-LT; 81025; 99283-25

== ENCOUNTER 2021-07-29 21:57 | Emergency (ER) | payer SELFPAY ==
[2021-07-29 22:17] VITALS: BP 108/65; PULSE 71
[2021-07-29] MEDS ORDERED: EPINEPHrine/Lidocaine/Tetracai Topical Gel 3 ML TOP ONE (22:30)
[2021-07-29] MEDS ORDERED: Lidocaine 1% 10 ML MDV INJECT ONE (22:38)
--- NOTE | 2021-07-29 22:40 | EDM.PDOC ---
ED HPI GENERAL MEDICAL PROBLEM - General Chief Complaint: Laceration Stated Complaint: RT HAND LACERATION Time Seen by Provider: 07/29/21 22:33 Source of Information: Reports: Patient History Limitations: Reports: No Limitations - History of Present Illness INITIAL COMMENTS - FREE TEXT/NARRATIVE: 26-year-old female presents with right hand laceration. 30 minutes ago she tripped and fell and cut her right hand on the paper towel dean. She is right-handed. ROS: A 10-point review of systems, other than pertinent positives and negatives as stated per HPI, is otherwise negative Past medical history: No additional pertinent history Past Surgical history: No additional pertinent history Social history: No additional pertinent history Family history: No additional pertinent history PHYSICAL EXAM General: AOx4, GCS = 15, No distress HEENT: dry mucous membrane Neck: supple, no meningismus, no Kernig or Brudzinski Cardiac: S1S2 RRR Respiratory: CTAB, no crackles or rales, no wheezing Abdomen: Soft, nontender, no rebound or guarding, nondistended, no pulsatile mass. Back: nontender Musculoskeletal: NVI distally, 1cm superficial laceration to right hand with no FB or bleeding. Neuro: No focal deficits, CN 2 - 12 WNL. Right Hand Pain Score (Numeric/FACES): 5 - Related Data Allergies Allergy/AdvReac Type Severity Reaction Status Date / Time No Known Allergies Allergy Verified 07/29/21 22:08 Home Meds: Home Meds Levothyroxine [Synthroid] 100 mcg PO DAILY 09/15/17 [History] FLUoxetine [PROzac] 20 mg PO DAILY 12/24/18 [History] buPROPion [Wellbutrin] 300 mg PO DAILY 12/24/18 [History] Cyclobenzaprine [Flexeril] 10 mg PO BEDTIME #10 tab 07/08/19 [Rx] Omeprazole 20 mg PO ACBREAKFAST 07/08/19 [History] Past Medical History - Past Health History Medical/Surgical History: Denies Medical/Surgical History Psychiatric History: Reports: Anxiety, Depression - Infectious Disease History Infectious Disease History: Reports: None - Past Surgical History HEENT Surgical History: Reports: Naso-Sinus Surgery GI Surgical History: Reports: Appendectomy Social & Family History - Family History Family Medical History: No Pertinent Family History - Tobacco Use Tobacco Use Status *Q: Never Tobacco User - Caffeine Use Caffeine Use: Reports: Coffee - Recreational Drug Use Recreational Drug Use: No ED ROS GENERAL - Review of Systems Review Of Systems: See Below (see dictation) ED EXAM, SKIN/RASH Exam: See Below (see dictation) ED SKIN PROCEDURES - Laceration/Wound Repair Right Hand Appearance: Superficial, Clean Distal NVT: Neuro & Vascular Intact, No Tendon Injury Anesthetic Type: Local Local Anesthesia - Lidocaine (Xylocaine): 1% Plain Local Anesthetic Volume: 5cc Skin Prep: Saline Saline Irrigation (cc's): 100 Exploration/Debridement/Repair: No Foreign Material Found Closed with: Sutures Lac/Wound length In cm: 1 Suture Size: 5-0 # of Sutures: 3 Suture Type: Prolene Sterile Dressing Applied: Nurse Tetanus Status Addressed: Yes Complications: No Course - Vital Signs Last Recorded V/S: Last Vital Signs Temp 98.2 F 07/29/21 22:08 Pulse 71 07/29/21 22:08 Resp 16 07/29/21 22:08 BP 108/65 07/29/21 22:08 Pulse Ox 97 07/29/21 22:08 - Orders/Labs/Meds Orders: Active Orders 24 hr Category Date Time Status Vaccine to be Administered/Admin Charge [RC] ASDIRECTED Care 07/29/21 23:16 O rdered Diphth,Pertuss(Acell),Tet Vac [Boostrix] Med 07/29/21 23:16 Once 0.5 ml IM .ONCE ONE Meds: Medications Discontinued Medications Generic Name Dose Route Start Last Admin Trade Name Freq PRN Reason Stop Dose Admin Lidocaine HCl 10 ml 07/29/21 22:38 07/29/21 22:44 Lidocaine 1% 10 Ml Mdv INJECT 07/29/21 22:39 Not Given ONETIME ONE Lidocaine HCl 5 ml 07/29/21 22:43 Lidocaine 1% 5 Ml Sdv INJECT 07/29/21 22:44 ONETIME ONE Lidocaine HCl Confirm 07/29/21 22:43 07/29/21 22:46 Lidocaine 1% 5 Ml Sdv Administered 07/29/21 22:44 Not Given Dose 5 ml .ROUTE .STK-MED ONE Lidocaine/Tetracaine 3 ml 07/29/21 22:30 07/29/21 22:44 Epinephrine/Lidocaine/Tetracai Topical Gel 3 Ml TOP 07/29/21 22:31 Not Given ONETIME ONE - Re-Assessments/Exams Free Text/Narrative Re-Assessment/Exam: 07/29/21 23:17 After updating on Boostrix and wound dressing in the ER, the patient improved and is currently stable for discharge. I performed a repeat exam and did not appreciate new abnormal findings. Patient exhibits normal vital signs and has a normal gait on road test. I advised the patient to return to the ER for reevaluation if symptoms worsened, including fever, worsening pain, or any other worrisome symptoms. I instructed the patient to follow up with their PCP within 2-3 days. MEDICAL DECISION MAKING: This patient was evaluated during the COVID-19 pandemic where resources and capacity might be affected. I reviewed the patients past medical records, lab and radiographic findings. I discussed the case with the patient. My differential diagnosis included: Hand laceration. The affected extremity demonstrated good distal perfusion, warm, pink, cap refill <2 seconds, compartments soft, pulses equal in both extremities. Patient understands to return immediately for worsening pain, swelling, fever, numbness/tingling or other concerns and to f/u with PMD if no improvement of symptoms within 3-5 days. Departure - Departure Time of Disposition: 11:15 Disposition: Home, Self-Care 01 Condition: Good Clinical Impression: Laceration of hand - Discharge Information *PRESCRIPTION DRUG MONITORING PROGRAM REVIEWED*: Not Applicable *COPY OF PRESCRIPTION DRUG MONITORING REPORT IN PATIENT JLUIS: Not Applicable Instructions: Laceration Care, Adult Referrals: Aracelis Rosales LOST AND FOUND CLERK [Primary Care Provider] - Forms: ED Department Discharge Additional Instructions: The need for follow-up, as well as the timing and circumstances, are variable depending upon the specifics of your emergency department visit. If you don't have a primary care physician on staff, we will provide you with a referral. We always advise you to contact your personal physician following an emergency department visit to inform them of the circumstance of the visit and for follow-up with them and/or the need for any referrals to a consulting specialist. The emergency department will also refer you to a specialist when appropriate. This referral assures that you have the opportunity for follow-up care with a specialist. All of these measure are taken in an effort to provide you with optimal care, which includes your follow-up. Under all circumstances we always encourage you to contact your private physician who remains a resource for coordinating your care. When calling for follow-up care, please make the office aware that this follow-up is from your recent emergency room visit. If for any reason you are refused follow-up, please contact the [facility] Emergency Department at and asked to speak to the emergency department charge nurse. If you do not have a primary care doctor, please follow up with the clinics below within 3-5 days. The sutures should be removed in 10 days. [facility] - [facility] [address] [place] [address] [facility] [address] [place] [id number] Sepsis Event Note (ED) - Evaluation Sepsis Screening Result: No Definite Risk - Focused Exam Vital Signs: Vital Signs Temp Pulse Resp BP Pulse Ox 07/29/21 22:08 98.2 F 71 16 108/65 97 - My Orders Last 24 Hours: My Active Orders 07/29/21 23:16 Vaccine to be Administered/Admin Charge [RC] ASDIRECTED Diphth,Pertuss(Acell),Tet Vac [Boostrix] 0.5 ml IM .ONCE ONE - Assessment/Plan Last 24 Hours: My Active Orders 07/29/21 23:16 Vaccine to be Administered/Admin Charge [RC] ASDIRECTED Diphth,Pertuss(Acell),Tet Vac [Boostrix] 0.5 ml IM .ONCE ONE
[2021-07-29] MEDS ORDERED: Diphtheria,Pertussis(Acell),Tetanus Vaccine 0.5 ML Syringe IM ONE (23:16)
[2021-07-29] MEDS ORDERED: Bacitracin Oint 1 GM U/D Packet ONE (23:26)
[2021-07-30] MEDS ORDERED: Bacitracin Oint 28.35 GM Tube TOP SCH (06:00)
== END 2021-07-29 23:35 | disposition home or self-care (01) ==
LOC: MW.ED 21:57
DX: S61.411A Laceration without foreign body of right hand, initial encounter (principal); Z23 Encounter for immunization; W01.198A Fall on same level from slipping, tripping and stumbling with subsequent striking against other object, initial encounter
CPT/HCPCS: 12001; 90471; 90715; 99282-25

== ENCOUNTER 2022-10-16 18:03 | Emergency (ER) | payer BC, OTHER ==
[2022-10-16 18:29] VITALS: BP 129/84; PULSE 71
== END 2022-10-16 18:53 | disposition home or self-care (01) ==
LOC: MW.ED 18:03
DX: O20.0 Threatened abortion (principal); Z3A.09 9 weeks gestation of pregnancy
CPT/HCPCS: 99283

== ENCOUNTER 2022-11-06 20:10 | Emergency (ER) | payer BC ==
[2022-11-06 21:11] LABS: BLOOD UREA NITROGEN,BUN 11 mg/dL (7.0-18.0); CARBON DIOXIDE,CO2 24.7 mmol/L (21.0-32.0); CHLORIDE,CL 103 mmol/L (98-107); GLUCOSE RANDOM 95 mg/dL (74-106); POTASSIUM,K 3.4 mmol/L (3.5-5.1); SODIUM,NA 139 mmol/L (136-145)
[2022-11-06 21:12] LABS: ESTIMATED GFR 120 mL/min (>60)
[2022-11-07 00:05] VITALS: BP 119/66; PULSE 70
== END 2022-11-06 23:35 | disposition home or self-care (01) ==
LOC: MW.ED 20:10
DX: O20.9 Hemorrhage in early pregnancy, unspecified (principal); Z3A.12 12 weeks gestation of pregnancy
CPT/HCPCS: 36415; 76801; 76801-26; 80053; 81001; 81025; 84702; 85025; 86900; 86901; 99283; 99284

== ENCOUNTER 2022-12-09 18:01 | Emergency (ER) | payer BC, OTHER ==
[2022-12-09 19:08] LABS: CARBON DIOXIDE,CO2 24.3 mmol/L (21.0-32.0); POTASSIUM,K 3.3 mmol/L (3.5-5.1)
[2022-12-09] MEDS ORDERED: cefTRIAXone 1 GM in Sodium Chloride 0.9% 50 ML IV ONE (21:35)
[2022-12-09 21:48] VITALS: BP 114/67; PULSE 66
== END 2022-12-09 22:00 | disposition home or self-care (01) ==
LOC: MW.ED 18:01
DX: O20.0 Threatened abortion (principal); O23.12 Infections of bladder in pregnancy, second trimester; N30.90 Cystitis, unspecified without hematuria; Z3A.17 17 weeks gestation of pregnancy
CPT/HCPCS: 36415; 76815; 80053; 81001; 84702; 85025; 96365; 99284; J0696; J3490; 99283

== ENCOUNTER 2023-05-22 21:46 | Observation (INO) | payer BC ==
[2023-05-22] MEDS ORDERED: Oxytocin/0.9 % Sodium Chloride 30 UNIT/500 ML BAG IV SCH (23:45)
[2023-05-22] MEDS ORDERED: Misoprostol 25 MCG (1/4 of 100 MCG) Tab VAG PRN ×2 (23:58)
[2023-05-22] MEDS ORDERED: Terbutaline 1 MG/ML SDV SUBCUT PRN (23:58)
[2023-05-23] MEDS ORDERED: Misoprostol 25 MCG (1/4 of 100 MCG) Tab PO ONE
[2023-05-23 00:28] LABS: APPEARANCE,URINE CLEAR; BILIRUBIN,URINE NEGATIVE (NEGATIVE); COLOR,URINE YELLOW; GLUCOSE,URINE NEGATIVE (NEGATIVE); KETONES,URINE NEGATIVE (NEGATIVE); LEUKOCYTE ESTERASE,URINE NEGATIVE (NEGATIVE); NITRITE,URINE NEGATIVE (NEGATIVE); OCCULT BLOOD,URINE NEGATIVE (NEGATIVE); PROTEIN,URINE NEGATIVE (NEGATIVE); UROBILINOGEN,URINE 0.2 EU/dL (<2.0)
[2023-05-23] MEDS ORDERED: Water For Irrigation,Sterile 1,000 ML Container IRR PRN (00:59)
[2023-05-23] MEDS ORDERED: Lidocaine 1% 50 ML MDV INJECT PRN (00:59)
[2023-05-23] MEDS ORDERED: Misoprostol 200 MCG Tab PO PRN (00:59)
[2023-05-23] MEDS ORDERED: Sodium Chloride 0.9% 10 ML Syringe FLUSH PRN (00:59)
[2023-05-23] MEDS ORDERED: Butorphanol 1 MG/ML SDV IVPUSH PRN (00:59)
[2023-05-23] MEDS ORDERED: Carboprost Tromethamine 250 MCG/1 mL Vial IM PRN (00:59)
[2023-05-23] MEDS ORDERED: Sodium Chloride 0.9% 2.5 ML Syringe FLUSH PRN (00:59)
[2023-05-23] MEDS ORDERED: Sodium Chloride 0.9% 20 ML SDV IV PRN (00:59)
[2023-05-23] MEDS ORDERED: Methylergonovine 0.2 MG/1 ML Amp IM PRN (00:59)
[2023-05-23] MEDS ORDERED: Tranexamic Acid IN NACL,ISO-OS 1,000 MG in Premix Bag 1 BAG IV PRN ×2 (00:59)
[2023-05-23] MEDS ORDERED: Oxytocin/0.9 % Sodium Chloride 30 UNIT/500 ML BAG IV SCH (01:00)
[2023-05-23 01:30] LABS: HEMATOCRIT 40.3 % (37.0-47.0); HEMOGLOBIN 13.8 g/dL (12.0-16.0); MEAN CORPUSCULAR HEMOGLOBIN 31.1 pg (28.0-32.0); MEAN CORPUSCULAR HGB CONC 34.2 g/dL (32.0-36.0); MEAN CORPUSCULAR VOLUME 90.8 fL (83.0-99.0); MEAN PLATELET VOLUME 11.7 fL (9.4-12.3); PLATELET COUNT,PLT 177 K/uL (150-400); RED BLOOD CELL COUNT 4.44 M/uL (4.10-5.30); WHITE BLOOD CELL COUNT,WBC 11.29 K/uL (3.9-11.3)
[2023-05-23] MEDS: Nalbuphine 10 MG/0.5 ML Syringe IVPUSH PRN ×3 (02:21→08:52)
[2023-05-23] MEDS ORDERED: Misoprostol 25 MCG (1/4 of 100 MCG) Tab PO PRN (04:50)
[2023-05-23] MEDS: Ondansetron 4 MG/2 ML SDV IVPUSH PRN ×3 (05:04→16:09)
[2023-05-23] MEDS: Lactated Ringers 1,000 ML IV SCH ×2 (06:00→11:03)
[2023-05-23] MEDS ORDERED: Phenylephrine HCl 0.5 MG/5 ML AMP IVPUSH PRN (07:48)
[2023-05-23] MEDS ORDERED: ePHEDrine 50 MG/ML SDV IVPUSH PRN ×2 (07:48)
[2023-05-23] MEDS ORDERED: Ropivacaine HCl/PF 400 MG in Premix Bag 1 BAG EPIDUR SCH (08:00)
[2023-05-23] MEDS ORDERED: Dexmedetomidine 200 MCG/2 ML SDV ONE (10:54)
[2023-05-23] MEDS ORDERED: Benzocaine/Menthol 20%-0.5% Spray 78 GM Cannister TOP PRN (16:14)
[2023-05-23] MEDS ORDERED: Witch Hazel Medicated Pads 40/Jar TOP PRN (16:14)
[2023-05-23] MEDS ORDERED: Docusate Sodium 100 MG Cap PO PRN (16:14)
[2023-05-23] MEDS ORDERED: Ibuprofen 400 MG Tab PO PRN (16:14)
[2023-05-23] MEDS ORDERED: Acetaminophen 500 MG Tab PO PRN ×2 (16:14)
[2023-05-23] MEDS ORDERED: Lanolin 100% Cream 7 GM Tube TOP PRN (16:14)
[2023-05-23] MEDS ORDERED: Bisacodyl 10 MG Supp RECTAL PRN (16:14)
[2023-05-23] MEDS ORDERED: ceFAZolin 2 GM in Sodium Chloride 0.9% 50 ML IV ONE (17:00)
[2023-05-23 17:19] LABS: HEMATOCRIT 40.1 % (37.0-47.0); HEMOGLOBIN 13.3 g/dL (12.0-16.0); MEAN CORPUSCULAR HEMOGLOBIN 30.4 pg (28.0-32.0); MEAN CORPUSCULAR HGB CONC 33.2 g/dL (32.0-36.0); MEAN CORPUSCULAR VOLUME 91.6 fL (83.0-99.0); MEAN PLATELET VOLUME 11.4 fL (9.4-12.3); PLATELET COUNT,PLT 178 K/uL (150-400); RED BLOOD CELL COUNT 4.38 M/uL (4.10-5.30); WHITE BLOOD CELL COUNT,WBC 21.24 K/uL (3.9-11.3)
[2023-05-23 17:47] LABS: A/G RATIO 0.7 (0.9-1.6); ALBUMIN 2.6 g/dL (3.4-5.0); BILIRUBIN TOTAL 0.4 mg/dL (0.2-1.0); CALCIUM 8.5 mg/dL (8.5-10.1); CARBON DIOXIDE,CO2 24.6 mmol/L (21.0-32.0); EST CRCL DRUG DOSING (CG) 59.09 mL/min; POTASSIUM,K 4.2 mmol/L (3.5-5.1); PROTEIN TOTAL,TP 6.1 g/dL (6.4-8.2)
[2023-05-23 17:51] LABS: INR 0.95 (0.86-1.11); PTT,PARTIAL THROMBOPLSTIN TIME 25.4 SEC (23.9-30.7)
[2023-05-23] MEDS: Ibuprofen 800 MG Tab PO PRN (20:41)
[2023-05-24 06:38] LABS: HEMATOCRIT 34.6 % (37.0-47.0); HEMOGLOBIN 11.7 g/dL (12.0-16.0)
[2023-05-24] MEDS: Ibuprofen 800 MG Tab PO PRN (18:06)
[2023-05-25] MEDS: Ibuprofen 800 MG Tab PO PRN ×2 (09:10→15:50)
[2023-05-25 15:35] VITALS: BP 137/95; PULSE 80
== END 2023-05-25 16:09 | disposition home or self-care (01) ==
LOC: MW.OB 21:46
PROVIDERS: ADMIT Obstetrics & Gynecology Obstetrics; ATTEND Obstetrics & Gynecology Obstetrics
DX: O80 Encounter for full-term uncomplicated delivery (principal); O99.52 Diseases of the respiratory system complicating childbirth; J45.909 Unspecified asthma, uncomplicated; O99.344 Other mental disorders complicating childbirth; F41.9 Anxiety disorder, unspecified; F90.9 Attention-deficit hyperactivity disorder, unspecified type; Z37.0 Single live birth; Z3A.40 40 weeks gestation of pregnancy; Z87.891 Personal history of nicotine dependence; Z98.890 Other specified postprocedural states; Z79.890 Hormone replacement therapy; Z79.899 Other long term (current) drug therapy
CPT/HCPCS: 36415; 51702; 59025; 59409; 80053; 81003; 85014; 85018; 85027; 85384; 85610; 85730; 86592; 86850; 86900; 86901; 86920; A9270; J0690; J2210; J2300; J2405; J2590; J3490; J7120; 01967